=== PATIENT | male | born 1960 | race Caucasian/White ===

== ENCOUNTER 2018-08-05 07:23 | Emergency (ER) | payer SELFPAY ==
[2018-08-05] MEDS ORDERED: LIDOCAINE HCL 1% 20 ML VIAL ONE (07:48)
== END 2018-08-05 08:35 | disposition home or self-care (01) ==
LOC: EDH 07:23
DX: L02.212 Cutaneous abscess of back [any part, except buttock and flank] (principal)
CPT/HCPCS: 10061